=== PATIENT | male | born 1970 | race Caucasian/White ===

== ENCOUNTER 2024-12-04 11:58 | Emergency (ER) | payer OTHER, SELFPAY ==
[2024-12-04 11:59] VITALS: BP 128/87; PULSE 108; RESP 16; TEMP 37.3; O2SAT 99; BMI 26.1
--- NOTE | 2024-12-04 12:55 | RAD_ITS ---
PROCEDURE: HAND MIN 3 VIEWS 12/04/2024 REASON FOR EXAM: CAT BITE TECHNIQUE: Procedure Code: BREANNA Modality: DX Procedure: HAND MIN 3 VIEWS Laterality: Left. COMPARISON: None. FINDINGS: Bones: No acute bony abnormalities. Joints: Unremarkable. Soft tissues: No soft tissue abnormalities. Other: RAD/Hand Min 3 Views IMPRESSION: No acute osseous abnormalities. Reading Location: [id number]
[2024-12-04 13:09] LABS: Hematocrit 36.5 % (40-54); Hemoglobin 11.5 g/dL (13.0-16.5); Immature Granulocytes Count 0.030 X10^3/uL (0.0-0.0); Mean Corp Hgb Conc 31.5 g/dL (32-36); Mean Corpuscular Volume 78.3 fL (80-94); Mean Platelet Vol. 8.9 fl (6.2-12.0); NRBC Flagged by Analyzer 0 % (0-5); Platelet Count 279 K/mm3 (150-450); RBC Distribution Width CV 18.4 % (11.6-14.6); RBC Distribution Width SD 51.9 fl (35.1-43.9); Red Blood Count 4.66 M/mm3 (4.6-6.2); White Blood Count 7.9 K/mm3 (4.4-11.0)
[2024-12-04] MEDS: Ampicillin/Sulbactam 3 GM in 0.9% Normal Saline (100mL MB+) 100 ML IV (13:12)
[2024-12-04 13:40] VITALS: BP 138/98; PULSE 65; RESP 16; TEMP 37.1; O2SAT 100
[2024-12-04 13:53] LABS: Anion Gap 11 (5-15); BUN 17 mg/dL (4-19); BUN/Creat Ratio 16.9 RATIO (10-20); Calcium,Total 9.3 mg/dL (7.6-11.0); Carbon Dioxide 23.3 mmol/L (21.0-32.0); Chloride 106 mmol/L (98-108); Estimated Creatinine Clearance 86.48 ml/min (50-250); Glucose 105 mg/dL (70-99); Potassium 4.3 mmol/L (3.3-5.1)
--- NOTE | 2024-12-04 13:59 | EDS_ITS ---
HPI History of Present Illness Chief Complaint: Bite Narrative Narrative: 54-year-old male visiting from out of town presents with cat bite to his left hand, middle finger that he sustained yesterday morning. He states he was trying to get his cat into the carrier, and it bit him in the left index finger. He is right-hand dominant. He drove 8 hours from [place], and noticed redness and swelling of his left hand and in the area of the bite at the base of his finger. He states he went to urgent care and they put him on Augmentin. While he is supposed to drive home tomorrow, he noticed increased swelling of the dorsum of his hand with redness, and also has a red streak up his left arm. He denies any fevers or chills, no axillary tenderness, no exacerbating or alleviating factors. ROS ROS ED ROS Narrative Review of systems positive for left hand swelling and redness. Difficulty moving fingers of left hand completely into a fist. No fevers or chills, no nausea or vomiting, no other symptoms. PFSH PFSH Allergy/AdvReac Type Severity Reaction Status Date / Time No Known Allergies Allergy Verified 12/04/24 12:04 Social History Smoking Status: Never smoker EXAM Physical Exam Narrative Exam Narrative: Afebrile. Vital signs noted. Nontoxic-appearing. Cardiovascular examination feels regular rate and rhythm. Lungs are clear to auscultation bilaterally. Abdomen is soft and nontender without guarding or rebound. Positive bowel s ounds. Focused examination of the left hand does reveal 2 puncture jim at the base of the left third digit. There is diffuse swelling and erythema of the dorsum of the left hand. He has good capillary refill distally. Positive lymphangitic streaking up left arm. No axillary lymphadenopathy. Multiple cat scratches to volar aspect of left hand as well. Ambulatory in ED Const Vital Signs: 12/04/24 11:59 12/04/24 13:40 Temperature 99.1 F 98.7 F Temperature Source Oral Oral Pulse Rate 108 H 65 Respiratory Rate 16 16 Blood Pressure 128/87 H 138/98 H Blood Pressure Mean 100 111 Pulse Ox 99 100 Oxygen Delivery Method Room Air Room Air MDM MDM MDM Narrative Medical decision making narrative: Differential diagnosis includes but not limited to cellulitis with lymphangitis from cat bite. Clinically I have low suspicion for necrotizing fasciitis as well as tenosynovitis. He does have good range of motion of his left third digit, and there is no pain with passive range of motion. I do not feel he needs emergent washout in the OR for a cat bite. I had a lengthy discussion with the patient regarding IV antibiotics and admission. I reviewed his l aboratory work and he has normal white count 7.9 with hemoglobin 11.5, hematocrit 36.5, platelet count 279. BMP shows glucose elevated at 105 with BUN of 17 and creatinine 1.02. X-rays were obtained of the left hand to help rule out any fracture or foreign body. I see no evidence of acute fracture or foreign body in the soft tissues. I reviewed the radiology report which confirms my independent interpretation. I offered him something for analgesia, and he prefers ibuprofen. At this point in time, I do feel that he needs to be admitted for continued IV antibiotics for a cat bite of his left third digit. Patient discussed with the hospitalist. Disposition is admitted in stable condition. History & Record Review Discussion w/independent historian: Patient Additional record(s) reviewed:: No prior records Lab Data Attestation: I reviewed the patient's lab results. Labs: Laboratory Results - last 24 hr 12/04/24 12:54 WBC 7.9 RBC 4.66 Hgb 11.5 L Hct 36.5 L MCV 78.3 L MCH 24.7 L MCHC 31.5 L RDW Std Deviation 51.9 H RDW Coeff of Jonathan 18.4 H Plt Count 279 MPV 8.9 Immature Gran % (Auto) 0.400 Neut % (Auto) 66.6 Lymph % (Auto) 18.7 L Grundy % (Auto) 12.8 H Eos % (Auto) 1.1 Baso % (Auto) 0.4 Absolute Neuts (auto) 5.3 Absolute Lymphs (auto) 1.48 Nucleated RBC % 0 Sodium 140 Potassium 4.3 Chloride 106 Carbon Dioxide 23.3 Anion Gap 11 BUN 17 Creatinine 1.02 Estim Creat Clear Calc 86.48 Est GFR (MDRD) Non-Af 88 BUN/Creatinine Ratio 16.9 Glucose 105 H Calcium 9.3 Radiography Diagnostic Testing: Clinical Impression(s) from Imaging Studies Hand X-Ray 12/04/24 12:55 IMPRESSION: No acute osseous abnormalities. Reading Location: [facility] Management Discussion w/another healthcare provider: Hospitalist (Dr. Atwood) Discharge Plan Dx/Rx/DC Orders Clinical Impression: Cat bite of left hand including fingers with infection, Cat scratch of hand, Lymphangitis Disposition Disposition: Acute Care [facility]
[2024-12-04] MEDS: Vancomycin HCl 1,250 MG in 0.9% Normal Saline (250mL Bag) 250 ML 167 MG IV (14:23)
--- NOTE | 2024-12-04 14:50 | PN.HOSP_ITS ---
Hospitalist Note Patient was seen and examined today at the request of the ER physician, he suffered a cat bite 2 days ago to his left middle finger and his index finger, he noticed swelling and redness the following day and was placed on Augmentin. He has only been on Augmentin since yesterday but was concerned that his hand was not improving. I examined his hand which was moderately swollen and reddened-there was no evidence of drainage from his puncture areas on his middle and index finger of his left hand, there was some faint streaking down his forea rm, he was able to make a fist almost completely with his left hand. I discussed options with the patient such as coming into the hospital for IV antibiotics or receiving an IV dose of ertapenem which would last till tomorrow, and then he could seek medical attention in [place], [place] where he lives. I asked him to remain on Augmentin and try to elevate his left hand is much as possible to reduce the swelling. He was okay with this course of action and I discussed this with Dr. Ying- the emergency room physician. Patient will receive IV ertapenem and be discharged on continued Augmentin. Patient is going to drive home today to [place], [place]. He has been instructed if his condition worsens to go to the emergency room for evaluation in [place], [place].
[2024-12-04] MEDS: Ertapenem Sod 1 GM in 0.9% Normal Saline (50mL MB+) 50 ML IV (15:13)
[2024-12-04 15:14] VITALS: BP 139/92; PULSE 59; RESP 16; O2SAT 100
[2024-12-04 15:47] VITALS: BP 138/93; PULSE 65; RESP 16; TEMP 36.7; O2SAT 100
== END 2024-12-04 15:53 | disposition home or self-care (01) ==
PROVIDERS: Emergency Provider Emergency Medicine; Visit Provider Emergency Medicine
DX: S60.473A Other superficial bite of left middle finger, initial encounter (principal); S60.471A Other superficial bite of left index finger, initial encounter; S60.512A Abrasion of left hand, initial encounter; I89.1 Lymphangitis; W55.01XA Bitten by cat, initial encounter
CPT/HCPCS: 73130; 80048; 85025; 96365; 96367; 99283; A4216; J0295